=== PATIENT | male | born 1985 ===

== ENCOUNTER 2018-09-22 02:48 | Emergency (ER) | payer OTHER, BC ==
[2018-09-22 03:07] VITALS: BMI 30.8
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
[2018-09-22 03:14] VITALS: RESP 18; TEMP 98.5
[2018-09-22 04:22] LABS: BLOOD UREA NITROGEN 12 mg/dL (7-21); CALCIUM 9.4 mg/dL (8.4-10.5); GFR NON-AFRICAN AMERICAN > 60
[2018-09-22 06:32] VITALS: BP 131/78; PULSE 93; O2SAT 100
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
--- NOTE | 2018-09-23 07:17 | CARD ---
APPROVED REPORT Date of service: 09/22/2018 EKG Measurement Heart [id number] <Conclusion> Normal sinus rhythm Normal ECG
== END 2018-09-22 06:30 | disposition home or self-care (01) ==
LOC: ED 02:48
DX: R07.89 Other chest pain (principal); R10.9 Unspecified abdominal pain; V49.59XA Passenger injured in collision with other motor vehicles in traffic accident, initial encounter; Y92.410 Unspecified street and highway as the place of occurrence of the external cause
CPT/HCPCS: 71260; 74177; 80048; 93005; 99284; Q9967